=== PATIENT | female | born 1970 | race Hispanic/Latino ===

== ENCOUNTER → 2023-08-16 | Day surgery (SDC) | payer OTHER ==
[~2023-08-16] MED LIST: ATORVASTATIN CA20 MG PO; B12 ACTIVE1000 MCG PO; EPHEDRINE SULFATE INJ 50 MG/ML VIAL ONE; GLYBURIDE5 MG PO; LIDOCAINE HCL 2% LOCAL INJ 5 ML SDV VIAL INJ ONE; METFORMIN HCL500 MG PO; METOCLOPRAMIDE HCL 10 MG/2ML VIAL ONE; PROPOFOL IV EMULSION 10 MG/ML 20 ML VIAL ONE
[2023-08-16] MEDS: LACTATED RINGER'S 1,000 ML ONE (07:35)
[2023-08-16 08:55] VITALS: BP 117/67; PULSE 69; RESP 16; TEMP 99; O2SAT 100
== END | disposition home or self-care (01) ==
LOC: OR 06:00
PROVIDERS: ATTEND Internal Medicine Gastroenterology
DX: Z12.11 Encounter for screening for malignant neoplasm of colon (principal); K64.8 Other hemorrhoids; E11.9 Type 2 diabetes mellitus without complications; E78.5 Hyperlipidemia, unspecified; Z01.810 Encounter for preprocedural cardiovascular examination; Z79.84 Long term (current) use of oral hypoglycemic drugs; Z79.899 Other long term (current) drug therapy
CPT/HCPCS: 36415; 45378; 82948; 93005; J2001; J2704; J2765; J7121